=== PATIENT | female | born 1970 | race Asian ===

== ENCOUNTER 2024-04-24 12:41 | Outpatient (CLI) | payer BC | END 2024-04-24 12:42 | disposition home or self-care (01) | LOC: CSHLAB 12:41 | PROVIDERS: ATTEND Surgery | DX: Z01.818 Encounter for other preprocedural examination (principal); N63.10 Unspecified lump in the right breast, unspecified quadrant ==

== ENCOUNTER 2024-05-01 06:07 | Day surgery (SDC) | payer BC ==
[2024-04-24 13:15] VITALS: BMI 23.9
[2024-05-01] MEDS ORDERED: EPINEPHrine 1 MG/ML VIAL ONE (06:22)
[2024-05-01] MEDS ORDERED: Bupivacaine PF 0.5% 30 ML VIAL ONE (06:22)
[2024-05-01] MEDS ORDERED: Famotidine/PF 20 mg/2ml Vial ONE (06:54)
[2024-05-01] MEDS ORDERED: Lidocaine 2% PF 5 ML VIAL ONE (07:12)
[2024-05-01] MEDS ORDERED: PROPOFOL 20 ML ONE (07:12)
[2024-05-01] MEDS ORDERED: fentaNYL 50 mcg/mL 1 mL Vial ONE ×3 (07:12→08:46)
[2024-05-01] MEDS ORDERED: CEFAZOLIN 2 GM VIAL ONE (07:14)
[2024-05-01] MEDS ORDERED: PHENYLEPHRINE-NS 100 MCG/ML 10 ML SYRINGE ONE (07:32)
[2024-05-01] MEDS ORDERED: Dexamethasone 4 mg/ml Vial ONE (07:35)
[2024-05-01] MEDS ORDERED: Ondansetron PF 4 MG/2 ML Vial ONE (07:35)
[2024-05-01] MEDS ORDERED: Ketorolac Tromethamine 30 MG (1 mL) VIAL ONE (07:42)
[2024-05-01] MEDS ORDERED: Glycopyrrolate 0.2 MG/ML 5 ML SYRINGE ONE (07:44)
[2024-05-01] MEDS ORDERED: ePHEDrine Sulfate 50 MG/10 ML VIAL ONE (08:05)
== END 2024-05-01 09:50 | disposition home or self-care (01) ==
LOC: CSHSDC 06:07
PROVIDERS: ATTEND Surgery
PROC: 0HBT0ZZ Excision of Right Breast, Open Approach (ICD-10-PCS; principal; 2024-05-01)
DX: C50.211 Malignant neoplasm of upper-inner quadrant of right female breast (principal); I10 Essential (primary) hypertension; Z79.899 Other long term (current) drug therapy; Z88.6 Allergy status to analgesic agent
CPT/HCPCS: 76098; 88307; 88341; 88342; J0171; J0665; J1100; J1885; J2001; J2405; J2704; J3010; S0028

== ENCOUNTER 2024-05-28 08:20 | Day surgery (SDC) | payer BC ==
[2024-05-24 11:01] VITALS: BMI 24.7
[2024-05-28] MEDS ORDERED: EPINEPHrine 1 MG/ML VIAL ONE (12:03)
[2024-05-28] MEDS ORDERED: Isosulfan Blue 50 MG/5 ML VIAL ONE (12:03)
[2024-05-28] MEDS ORDERED: CEFAZOLIN 2 GM VIAL ONE (12:03)
[2024-05-28] MEDS ORDERED: Bupivacaine PF 0.5% 30 ML VIAL ONE (12:03)
[2024-05-28] MEDS ORDERED: fentaNYL 50 mcg/mL 1 mL Vial ONE ×2 (12:11→12:42)
[2024-05-28] MEDS ORDERED: PROPOFOL 20 ML ONE ×2 (12:11→12:41)
[2024-05-28] MEDS ORDERED: Lidocaine 1% PF 5 ML VIAL ONE (12:13)
[2024-05-28] MEDS ORDERED: ePHEDrine Sulfate 50 MG/10 ML VIAL ONE (12:53)
[2024-05-28] MEDS ORDERED: Ketorolac Tromethamine 30 MG (1 mL) VIAL ONE (13:26)
[2024-05-28] MEDS ORDERED: Ondansetron PF 4 MG/2 ML Vial ONE (13:26)
== END 2024-05-28 15:10 | disposition home or self-care (01) ==
LOC: CSHSDC 08:20
PROVIDERS: ATTEND Surgery
PROC: 07B50ZZ Excision of Right Axillary Lymphatic, Open Approach (ICD-10-PCS; principal; 2024-05-28)
PROC: 0HBT0ZZ Excision of Right Breast, Open Approach (ICD-10-PCS; principal; 2024-05-28)
DX: C50.211 Malignant neoplasm of upper-inner quadrant of right female breast (principal); I10 Essential (primary) hypertension; D24.1 Benign neoplasm of right breast; N60.11 Diffuse cystic mastopathy of right breast; Z88.8 Allergy status to other drugs, medicaments and biological substances; Z79.899 Other long term (current) drug therapy
CPT/HCPCS: 88307; 88341; 88342; C1713; J0171; J0665; J1885; J2405; J2704; J3010; Q9968